=== PATIENT | female | born 1985 ===

== ENCOUNTER 2017-04-19 14:37 | Emergency (ER) | payer MEDICAID ==
[2017-04-19] MEDS ORDERED: Iodixanol 320 MG/ML 100 ML BOTTLE IV ONE (14:49)
[2017-04-19 14:53] LABS: BASO % 0.6 % (0.0-2.0); EOS # 0.1 K/uL (0.0-0.7); EOS % 2.5 % (0.0-4.0); HEMOGLOBIN 13.5 g/dL (11.0-16.0); LYMPH # 1.9 K/uL (1.0-4.3); LYMPH % 35.4 % (20.0-40.0); MEAN CELL VOLUME 80.7 fL (81.0-99.0); MEAN CORPUSCULAR HEMOGLOBIN 26.9 pg (27.0-31.0); MEAN CORPUSCULAR HGB CONC 33.4 g/dL (33.0-37.0); MEAN PLATELET VOLUME 7.2 fL (7.2-11.7); MONO # 0.3 K/uL (0.0-0.8); NEUT % 55.5 % (50.0-75.0); RBC 5.03 Mil/uL (3.80-5.20); RED CELL DISTRIBUTION WIDTH 15.5 % (11.5-14.5); WHITE BLOOD COUNT 5.4 K/uL (4.8-10.8)
[2017-04-19 15:00] LABS: PROTHROMBIN TIME 11.6 SECONDS (9.7-12.2)
--- NOTE | 2017-04-19 15:08 | CT ---
PROCEDURE: CT HEAD WITHOUT CONTRAST. HISTORY: Code Stroke COMPARISON: None available. TECHNIQUE: Axial computed tomography images were obtained through the head/brain without intravenous contrast. Radiation dose: Total exam DLP = 879.09 mGy-cm. This CT exam was performed using one or more of the following dose reduction techniques: Automated exposure control, adjustment of the mA and/or kV according to patient size, and/or use of iterative reconstruction technique. FINDINGS: HEMORRHAGE: No intracranial hemorrhage. BRAIN: Normal tavares-white matter differentiation and density are appreciated throughout the cerebrum and cerebellum with the brainstem appearing unremarkable as well. There is no mass effect. There is no suspicious extra-axial fluid collection and the midline brain anatomy appears diffusely unremarkable. VENTRICLES: Unremarkable. No hydrocephalus. CALVARIUM: Unremarkable. PARANASAL SINUSES: Unremarkable as visualized. No significant inflammatory changes. MASTOID AIR CELLS: Unremarkable as visualized. No inflammatory changes. OTHER FINDINGS: None. IMPRESSION: Unremarkable unenhanced CT of the Head. Discussed with Physician Assistant Rodriguez as well as Stroke Team nurse coordinator 04/19/2017 3:06 p.m.
[2017-04-19 15:22] LABS: BLOOD UREA NITROGEN 9 mg/dL (7-17); GFR AFRICAN-AMERICAN > 60; GFR NON-AFRICAN AMERICAN > 60
[2017-04-19 15:23] LABS: ALB/GLOB RATIO 1.3 (1.0-2.1); ALBUMIN 4.6 g/dL (3.5-5.0); ALT/SGPT 24 U/L (9-52); AST/SGOT 23 U/L (14-36); CALCIUM 9.1 mg/dl (8.6-10.4); HDL CHOLESTEROL 51 mg/dL (30-70)
[2017-04-19] MEDS ORDERED: levETIRAcetam 1,000 MG in Dextrose 5% In Water 200 ML IVPB STA (15:34)
--- NOTE | 2017-04-19 15:42 | RAD ---
HISTORY: Code Stroke COMPARISON: None available. TECHNIQUE: Chest, one view. FINDINGS: LUNGS: No focal consolidation. Please note that chest x-ray has limited sensitivity for the detection of pulmonary masses. PLEURA: No significant pleural effusion identified. No definite pneumothorax . CARDIOVASCULAR: The cardiomediastinal silhouette appears within normal limits of size. OSSEOUS STRUCTURES: No acute osseous abnormality identified. VISUALIZED UPPER ABDOMEN: Unremarkable. OTHER FINDINGS: None. IMPRESSION: No focal consolidation identified.
[2017-04-19 15:43] LABS: LDL CHOLESTEROL 103 mg/dL (0-129)
--- NOTE | 2017-04-19 15:52 | C.PDOC ---
History Of Present Illness 31yo female with history of epileptic seizures, brought to ER via EMS for evaluation after patient had an episode of aphasia and drooling at home, witnessed by her . Upon arrival to ER, patient with continued trouble speaking, code stroke called and patient was sent up for a CT Head. CTA was not performed at this time as the patient has an unknown allergy to contrast. Patient was noted to be moving all extremities, has appropriate answers to questions but has difficulty speaking; no slurring noted. Patient currently complaining of left sided headache, and chest pain. No other complaints. Time Seen by Provider: 04/19/17 15:06 Chief Complaint (Nursing): Weakness/Neurological Deficit History Per: EMS, Family History/Exam Limitations: no limitations Onset/Duration Of Symptoms: Mins Current Symptoms Are (Timing): Still Present Activity At Onset Of Symptoms: Sitting Seizure Or Post-ictal Symptoms: Post-ictal Period - Symptoms Of CVA Associated Symptoms: Impaired Speech Past Medical History Reviewed: Historical Data, Nursing Documentation, Vital Signs Vital Signs: Last Vital Signs Temp 99.3 F 04/19/17 14:44 Pulse 70 04/19/17 16:51 Resp 16 04/19/17 16:51 BP 90/53 L 04/19/17 16:51 Pulse Ox 100 04/19/17 16:51 - Medical History PMH: Seizures Surgical History: No Surg Hx Family History: States: No Known Family Hx - Social History Hx Alcohol Use: No Hx Substance Use: No Review Of Systems Except As Marked, All Systems Reviewed And Found Negative. Cardiovascular: Positive for: Chest Pain Neurological: Positive for: Change in Speech, Headache Physical Exam - Physical Exam Appears: Non-toxic Skin: Normal Color, Warm, Diaphoretic Head: Atraumatic, Normacephalic Eye(s): bilateral: Normal Inspection, PERRL, EOMI Nose: Normal Oral Mucosa: Moist Neck: Normal ROM, Supple Chest: Symmetrical Cardiovascular: Rhythm Regular Respiratory: Normal Breath Sounds, No Wheezing Gastrointestinal/Abdominal: Normal Exam, Soft, No Tenderness Extremity: Normal ROM Neurological/Psych: Oriented x3 (alert but groggy), Normal Speech, Normal Cognition, Normal Motor, Normal Sensation, Other (answers question appropriately but is slow to respond) ED Course And Treatment - Laboratory Results Result Diagrams: 04/19/17 14:49 04/19/17 14:49 ECG: Interpreted By Me, Viewed By Me ECG Rhythm: Sinus Rhythm ECG Interpretation: Normal Interpretation Of ECG: No ST/T elevation or depression Rate From EC O2 Sat by Pulse Oximetry: 97 (RA) Pulse Ox Interpretation: Normal NIHSS Stroke Scale 2 - Date/Time Evaluation Performed Date Performed: 04/19/17 Time Performed: 14:40 When Was NIHSS Performed: Baseline - How Severe is the Stroke Level of Consciousness: 1=Drowsy LOC to Questions: 0=Both comments correct LOC to commands: 0=Obeys both correctly Best Gaze: 0=Normal Visual: 0=No visual loss Facial: 0=Normal Motor Arm - Left: 0=No drift Motor Arm - Right: 0=No drift Motor Leg - Left: 0=No drift Motor Leg - Right: 0=No drift Limb Ataxia: 0=Absent Sensory: 0=Normal Best Language: 0=No aphasia Dysarthia: 1=Mild to moderate slurring Extinction & Inattention (Neglect): 0=Normal, no object Score: 2 NIHSS Stroke Scale 3 - Date/Time Evaluation Performed Date Performed: 04/19/17 Time Performed: 14:40 - How Severe is the Stroke Level of Consciousness: 1=Drowsy LOC to Questions: 0=Both comments correct LOC to commands: 0=Obeys both correctly Best Gaze: 0=Normal Visual: 0=No visual loss Facial: 0=Normal Motor Arm - Left: 0=No drift Motor Arm - Right: 0=No drift Motor Leg - Left: 0=No drift Motor Leg - Right: 0=No drift Limb Ataxia: 0=Absent Sensory: 0=Normal Best Language: 0=No aphasia Dysarthia: 1=Mild to moderate slurring Extinction & Inattention (Neglect): 0=Normal, no object Score: 2 Severity Of Stroke: 1-4 = Minor Stroke Medical Decision Making Medical Decision Making: Impression: Post ictal state Plan: -- CT Head Case discussed with Dr. Farrar, neurologist fiberglass insulation installer who suggests patient be given IV Keppra. Also recommends MRI with contrast however patient is allergic to MRI contrast. Keppra 1000mg IVPB ordered. Time: [address] Olea's colleague at [facility], who states the patient is well known to him and has a history of seizures. 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 Patient is compliant with her medication. Dr. Olea's colleague is in agreement that the patient's presentation today is most likely a post-ictal episode and they will follow up with patient after discharge. Time: 1621 Patient states she is in the process of switching from 1000mg of Trileptal 2x per day to 1500mg of Keppra 2x per day but she has not yet. She also reports a surgery was done last March on her cavernoma and there was activity on her EEG which was attributed to her surgery. Patient currently complaining of jaw pain as well. Cardiac enzymes reviewed, and within normal limits. Disposition Counseled Patient/Family Regarding: Studies Performed, Diagnosis, Need For Followup - Disposition Disposition: HOME/ ROUTINE Disposition Time: 18:48 Condition: STABLE Additional Instructions: Please follow up with Dr. Olea. Continue taking your medications as indicated. Instructions: Seizures, Adult (DC) Forms: [facility] ([place]), General Discharge Instructions, Work Excuse - POA Present On Arrival: None - Clinical Impression Clinical Impression: Seizures - Scribe Statement The provider has reviewed the documentation as recorded by the Scribe (Dawna Bell) Provider Attestation: All medical record entries made by the Scribe were at my direction and personally dictated by me. I have reviewed the chart and agree that the record accurately reflects my personal performance of the history, physical exam, medical decision making, and the department course for this patient. I have also personally directed, reviewed, and agree with the discharge instructions and disposition. Physician Patient Turnover Patient Signed Over To: Franklyn Dawson Handoff Comments: Patient with hx of seizures, presented post-ictal, pending MRI /MRA requested by Dr. Farrar. patient with hx of Cavernoma left temporal lobe. If no bleeding on MRI may f/u with her neuro team.
[2017-04-19] MEDS ORDERED: levETIRAcetam 1,000 MG in Sodium Chloride 0.9% 100 ML IVPB ONE (16:00)
--- NOTE | 2017-04-19 16:02 | C.PDOC ---
Time Seen by Provider: 04/19/17 15:06 Chief Complaint (Nursing): Weakness/Neurological Deficit Past Medical History Vital Signs: Last Vital Signs Temp 99.3 F 04/19/17 14:44 Pulse 103 H 04/19/17 14:38 Resp 19 04/19/17 14:38 BP 124/78 04/19/17 14:38 Pulse Ox 96 04/19/17 14:38 - Social History Hx Alcohol Use: No Hx Substance Use: No ED Course And Treatment - Laboratory Results Result Diagrams: 04/19/17 14:49 04/19/17 14:49 O2 Sat by Pulse Oximetry: 96 Disposition - Disposition
--- NOTE | 2017-04-19 16:19 | CP.PCM.CON ---
History of Present Illness - History of Present Illness History of Present Illness: PGY-[address] Farrar Reason for consult: code stroke This is a 31 year old female with PMHx seizures, brain aneurysm s/p repair in 2016 who presented as a code stroke. Per at bedside, patient had an episode where she was just staring off into space and drooling earlier today. Ambulance was called and patient was taken to the ED. Along the way, patient also started developing slurred speech per EMS. Code stroke was called. Patient was seen and examined after CT. Patient's primary complaint was that her limbs felt heavy. Patient complaining of weakness, headaches, and chest pain. 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 Olea Review of Systems - Constitutional Constitutional: Weakness. absent: Chills, Fever - EENT Eyes: absent: Change in Vision Ears: absent: Decreased Hearing Nose/Mouth/Throat: absent: Nasal Congestion - Cardiovascular Cardiovascular: Chest Pain - Respiratory Respiratory: absent: Dyspnea - Gastrointestinal Gastrointestinal: absent: Abdominal Pain - Genitourinary Genitourinary: absent: Dysuria - Musculoskeletal Musculoskeletal: Muscle Weakness - Integumentary Integumentary: absent: Rash - Neurological Neurological: Headaches, Weakness. absent: Paresthesias - Psychiatric Psychiatric: Anxiety - Endocrine Endocrine: absent: Palpitations Past Patient History - Past Social History Smoking Status: Unknown If Ever Smoked - NEUROLOGICAL Hx Seizures: Yes - PSYCHIATRIC Hx Substance Use: No - ANESTHESIA Hx Anesthesia: No Meds Allergies/Adverse Reactions: Allergies Allergy/AdvReac Type Severity Reaction Status Date / Time gadobutrol [From Gadavist] Allergy Mild Verified 04/19/17 15:25 Penicillins Allergy Mild Verified 04/19/17 15:25 alprazolam [From Xanax] Allergy Verified 04/19/17 14:43 diazepam [From Valium] Allergy Verified 04/19/17 14:43 hydromorphone [From Dilaudid] Allergy Verified 04/19/17 14:43 latex Allergy Verified 04/19/17 14:43 Physical Exam - Constitutional Appears: No Acute Distress - Head Exam Head Exam: ATRAUMATIC, NORMOCEPHALIC - Eye Exam Eye Exam: EOMI, PERRL - ENT Exam ENT Exam: Mucous Membranes Moist - Respiratory Exam Respiratory Exam: Clear to Auscultation Bilateral, NORMAL BREATHING PATTERN. absent: Rales, Rhonchi, Wheezes - Cardiovascular Exam Cardiovascular Exam: REGULAR RHYTHM, +S1, +S2 - GI/Abdominal Exam GI & Abdominal Exam: Normal Bowel Sounds, Soft. absent: Tenderness - Extremities Exam Extremities exam: Negative for: pedal edema - Neurological Exam Neurological exam: Alert, Oriented x3 Additional comments: NIHSS 4 CN 2-12 intact. Muscle strength 3/5 in all extremities. Sensations to light touch intact in all extremities. Reflexes 2/4 in all extremities. - Psychiatric Exam Psychiatric exam: Anxious - Skin Skin Exam: Dry, Warm Results - Vital Signs Recent Vital Signs: Last Vital Signs Temp 99.3 F 04/19/17 14:44 Pulse 77 04/19/17 15:33 Resp 19 04/19/17 15:33 BP 107/63 04/19/17 15:33 Pulse Ox 97 04/19/17 16:06 - Labs Result Diagrams: 04/19/17 14:49 04/19/17 14:49 Labs: Laboratory Results - last 24 hr 04/19/17 04/19/17 04/19/17 14:49 14:49 14:49 WBC 5.4 RBC 5.03 Hgb 13.5 Hct 40.6 MCV 80.7 L MCH 26.9 L MCHC 33.4 RDW 15.5 H Plt Count 297 MPV 7.2 Neut % (Auto) 55.5 Lymph % (Auto) 35.4 Vigo % (Auto) 6.0 Eos % (Auto) 2.5 Baso % (Auto) 0.6 Neut # (Auto) 3.0 Lymph # (Auto) 1.9 Vigo # (Auto) 0.3 Eos # (Auto) 0.1 Baso # (Auto) 0.0 PT 11.6 INR 1.0 APTT 25 Sodium 142 Potassium 3.9 Chloride 105 Carbon Dioxide 22 Anion Gap 19 BUN 9 Creatinine 0.7 Est GFR ( Amer) > 60 Est GFR (Non-Af Amer) > 60 Random Glucose 108 H Hemoglobin A1c Calcium 9.1 Total Bilirubin 0.6 AST 23 ALT 24 Alkaline Phosphatase 48 Troponin I < 0.0120 Total Protein 8.1 Albumin 4.6 Globulin 3.5 Albumin/Globulin Ratio 1.3 Triglycerides 251 H Cholesterol 201 H LDL Cholesterol Direct 103 HDL Cholesterol 51 Blood Type Antibody Screen 04/19/17 04/19/17 14:49 14:49 WBC RBC Hgb Hct MCV MCH MCHC RDW Plt Count MPV Neut % (Auto) Lymph % (Auto) Vigo % (Auto) Eos % (Auto) Baso % (Auto) Neut # (Auto) Lymph # (Auto) Vigo # (Auto) Eos # (Auto) Baso # (Auto) PT INR APTT Sodium Potassium Chloride Carbon Dioxide Anion Gap BUN Creatinine Est GFR ( Amer) Est GFR (Non-Af Amer) Random Glucose Hemoglobin A1c 5.6 Calcium Total Bilirubin AST ALT Alkaline Phosphatase Troponin I Total Protein Albumin Globulin Albumin/Globulin Ratio Triglycerides Cholesterol LDL Cholesterol Direct HDL Cholesterol Blood Type A POSITIVE Antibody Screen Negative Assessment & Plan - Assessment and Plan (Free Text) Assessment: This is a 31 year old female with PMHx brain aneurysm and seizures who presented as a code stroke. Patient likely had a seizure contributing to post ictal state which seems to be slowly resolving. Plan: Seizure Head CT unremarkable for acute pathology Per ED note, patient's neurologist was contacted who verified that she has a cavernoma Since patient is allergic to contrast, will order MRI brain without contrast Also ordered MRA Head/Neck Keppra IV load one time dose Recommend Keppra 750 mg BID Recommend resume home Trileptal dose Patient to follow up with Dr. Olea as an outpatient Discussed with Dr. Farrar NIHSS Stroke Scale 2 - Date/Time Evaluation Performed Date Performed: 04/19/17 Time Performed: 14:40 When Was NIHSS Performed: Code Stroke - How Severe is the Stroke Level of Consciousness: 0=Alert LOC to Questions: 0=Both comments correct LOC to commands: 0=Obeys both correctly Best Gaze: 0=Normal Visual: 0=No visual loss Facial: 0=Normal Motor Arm - Left: 0=No drift Motor Arm - Right: 0=No drift Motor Leg - Left: 1=Drift before 5 sec Motor Leg - Right: 2=Falls before 5 sec Limb Ataxia: 0=Absent Sensory: 0=Normal Best Language: 0=No aphasia Dysarthia: 1=Mild to moderate slurring Extinction & Inattention (Neglect): 0=Normal, no object Score: 4 Severity Of Stroke: 1-4 = Minor Stroke
[2017-04-19 21:36] VITALS: O2SAT 100
[2017-04-19 22:38] VITALS: BP 102/48; PULSE 69; RESP 18
[2017-04-19 22:39] VITALS: TEMP 98.3
--- NOTE | 2017-04-20 08:40 | MRI ---
PROCEDURE: MRI BRAIN WITHOUT CONTRAST HISTORY: seizure COMPARISON: Noncontrast head CT from 04/19/2017. TECHNIQUE: Multiplanar, multisequence MR images of the brain were obtained without intravenous contrast enhancement. FINDINGS: HEMORRHAGE: None DWI: No evidence of an acute or early subacute infarction. BRAIN PARENCHYMA: There is focal encephalomalacia/ gliosis in the left temporal lobe. Daniels-white matter differentiation is preserved. There is no mass, mass effect or abnormal extra-axial fluid collection. There is no territorial infarction. 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 VENTRICLES: There is mild global parenchymal volume loss and proportionate enlargement of the ventricles and cortical sulci, slightly advanced for the patient's age. CRANIUM: There is normal bone marrow signal pattern. Status post left temporal craniotomy ORBITS: Grossly unremarkable. PARANASAL SINUSES/MASTOIDS: Predominantly clear. VASCULAR SYSTEM: There are normal signal voids in the larger intracranial arteries. OTHER FINDINGS: None. IMPRESSION: No acute intracranial abnormality. Focal encephalomalacia/gliosis in the left temporal lobe. Status post left temporal craniotomy. Mild global parenchymal volume loss, slightly advanced for the patient's age. A preliminary report was provided by [facility] services.
--- NOTE | 2017-04-20 08:50 | MRI ---
PROCEDURE: Magnetic Resonance Angiography Brain HISTORY: Seizures COMPARISON: None available. TECHNIQUE: 3D time of flight MR angiography of the intracranial arteries was performed. Rotating maximum intensity projection images were generated. FINDINGS: INTERNAL CAROTID ARTERIES: Normal flow related signal. The skull base, petrous, cavernous and supraclinoid segments are bilaterally widely patient. ANTERIOR CEREBRAL ARTERIES: Normal flow related signal. A1 and A2 segments are widely patent. Smaller distal branches unremarkable, as visualized. MIDDLE CEREBRAL ARTERIES: Normal flow related signal.M1 and M2 segments are widely patent. Perisylvian branches grossly symmetric. POSTERIOR CIRCULATION: Basilar Artery: Normal flow related signal. Distal Vertebral Arteries: Normal flow related signal. The right vertebral artery is dominant, an anatomic variant. Posterior Cerebral Arteries: Normal flow related signal. Posterior Inferior Cerebellar Arteries: Normal flow related signal. ANEURYSM/ VASCULAR MALFORMATIONS: None. OTHER FINDINGS: None. IMPRESSION: Normal MR angiography of the brain. A preliminary report was provided by [employer] services.
--- NOTE | 2017-04-20 08:52 | MRI ---
PROCEDURE: MR Angiography of the neck without contrast HISTORY: seizure COMPARISON: None available. TECHNIQUE: 3D [id number] angiography of the neck was performed. Rotating maximum intensity projection images of the cervical carotid and vertebral arteries were generated. The origins of the common carotid arteries were not visualized, which is a limitation inherent to the non-contrast time of flight technique. FINDINGS: RIGHT CAROTID ARTERIES: Common Carotid Artery: Normal. Carotid Bifurcation: Normal. Internal Carotid Artery:Normal. External Carotid Artery (proximal branches): Normal. LEFT CAROTID ARTERIES: Common Carotid Artery: Normal. Carotid Bifurcation: Normal. Internal Carotid Artery:Normal. External Carotid Artery (proximal branches): Normal. VERTEBRAL ARTERIES: Right Vertebral Artery: Normal. The right vertebral artery is dominant, an anatomic variant. Left Vertebral Artery: Normal. OTHER FINDINGS: None. IMPRESSION: Normal MR Angiography of the neck. A preliminary report was provided by [email or web address] [facility].
--- NOTE | 2017-04-21 11:34 | CARD ---
APPROVED REPORT EKG Measurement Heart [id number] <Conclusion> Normal sinus rhythm Normal ECG
== END 2017-04-19 23:10 | disposition home or self-care (01) ==
LOC: C.ER 14:37
DX: G40.909 Epilepsy, unspecified, not intractable, without status epilepticus (principal)
CPT/HCPCS: 70450; 70544; 70547; 70551; 71045; 80053; 80061; 83036; 84484; 85025; 85610; 85730; 86850; 86900; 93005; 96365; 96366; 96375; 99285; J1885; J1953; Q9967